=== PATIENT | male | born 1980 | race American Indian/Alaskan Native ===

== ENCOUNTER 2016-07-20 03:10 | Emergency (ER) | payer SELFPAY ==
[2016-07-20 05:25] LABS: Basophils % (Auto) 0.3 % (0.0-1.8); Eosinophils % (Auto) 0.6 % (0.0-4.3); Hematocrit 38.2 % (35.5-45.6); Hemoglobin 13.2 gm/dl (11.8-15.2); Mean Corpuscular HGB Conc 34 % (32-34); Mean Corpuscular Hemoglobin 28 pg (28-32); Mean Corpuscular Volume 81 fl (84-94); Platelet Count 186 K/mm3 (140-440); Red Blood Count 4.75 M/mm3 (3.65-5.03); Red Cell Distribution Width 13.3 % (13.2-15.2); White Blood Count 6.9 K/mm3 (4.5-11.0)
[2016-07-20 05:34] LABS: Alanine Aminotransferase 34 units/L (7-56); Albumin 3.8 g/dL (3.9-5); Albumin/Globulin Ratio 1.7 %; Alkaline Phosphatase 50 units/L (35-129); Anion Gap 16 mmol/L; Blood Urea Nitrogen 13 mg/dL (9-20); Carbon Dioxide 25 mmol/L (22-30); Chloride 96.9 mmol/L (98-107); Glucose 221 mg/dL (75-100); Potassium 3.5 mmol/L (3.6-5.0); Sodium 134 mmol/L (137-145); Total Protein 6.1 g/dL (6.3-8.2)
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
[2016-07-20] MEDS: TENIVAC IM ONE (07:32)
[2016-07-20] MEDS: ANCEF/NS 1 GM/50 ML 1 GM/50 ML BAG IV ONE (07:35)
[2016-07-20 10:04] VITALS: BP 123/74
== END 2016-07-20 10:02 | disposition other institution (70) ==
LOC: ED 03:10
DX: T25.222A Burn of second degree of left foot, initial encounter (principal); E11.9 Type 2 diabetes mellitus without complications; L03.116 Cellulitis of left lower limb; Z87.891 Personal history of nicotine dependence; X08.8XXA Exposure to other specified smoke, fire and flames, initial encounter; Y93.89 Activity, other specified; Y92.89 Other specified places as the place of occurrence of the external cause; Y99.8 Other external cause status
CPT/HCPCS: 36415; 80053; 82140; 85025; 90471; 90714; 96365; 96375; 99285; J0690; J1815

== ENCOUNTER 2020-05-05 22:18 | Emergency (ER) | payer SELFPAY ==
[2020-05-05] MEDS ORDERED: MORPHINE 4 MG/1 ML INJ IV ONE (22:27)
[2020-05-05] MEDS ORDERED: ONDANSETRON 4 MG/2 ML INJ IV ONE (22:27)
[2020-05-05] MEDS ORDERED: FAMOTIDINE 20 MG/2 ML INJ IV ONE (22:27)
[2020-05-05] MEDS ORDERED: SODIUM CHLORIDE 0.9% 1000 ML 1,000 ML IV ONE ×2 (22:27→23:26)
--- NOTE | 2020-05-05 22:55 | Event Note ---
ED Screening Note Date of service: 05/05/20 Time: 22:40 ED Screening Note: Patient is a 39-year-old -[place] male with a history of [id number] diabetes who presents to the ED with complaint of acute onset persistent severe diffuse abdominal pain worse in the epigastric area with intractable nausea and vomiting for the last 2 days. Patient states that he has not been able to keep anything down in the last 12 hours despite trying to drink water. Patient states that the emesis is dark and black in color. Patient states that no one else at home is had similar symptoms. Patient denies hematemesis, chest pain, shortness of breath, fever, chills, cough, diarrhea, dysuria, urinary frequency and urgency, testicular pain, traumatic injury, change in vision, sore throat or headache, dizziness or lightheadedness. This initial assessment/diagnostic orders/clinical plan/treatment(s) is/are subject to change based on patients health status, clinical progression and re- assessment by fellow clinical providers in the ED. Further treatment and workup at subsequent clinical providers discretion. Patient/guardian urged not to elope from the ED as their condition may be serious if not clinically assessed and managed. Initial orders include: CBC, CMP, lipase, UA, abdomen pelvis CT scan with contrast, normal saline 1 L IV bolus, Zofran, Pepcid, morphine
[2020-05-05 22:56] LABS: Basophils # (Auto) 0.1 K/mm3 (0.0-0.1); Basophils % (Auto) 0.7 % (0.0-1.8); Eosinophils % (Auto) 0.1 % (0.0-4.3); Hematocrit 37.1 % (35.5-45.6); Hemoglobin 13.1 gm/dl (11.8-15.2); Lymphocytes # (Auto) 0.9 K/mm3 (1.2-5.4); Lymphocytes % (Auto) 10.9 % (13.4-35.0); Mean Corpuscular HGB Conc 35 % (32-34); Mean Corpuscular Volume 78 fl (84-94); Monocytes # (Auto) 0.7 K/mm3 (0.0-0.8); Monocytes % (Auto) 8.4 % (0.0-7.3); Platelet Count 372 K/mm3 (140-440); Red Blood Count 4.76 M/mm3 (3.65-5.03); Red Cell Distribution Width 13.9 % (13.2-15.2)
[2020-05-05 23:22] LABS: Alanine Aminotransferase 10 units/L (7-56); Albumin 4.1 g/dL (3.9-5); BUN/Creatinine Ratio 26; Blood Urea Nitrogen 21 mg/dL (9-20); Calcium 9.4 mg/dL (8.4-10.2); Hemolysis Index 48
--- NOTE | 2020-05-05 23:30 | Emergency Department Report ---
ED Abdominal Pain HPI - General Chief Complaint: Abdominal Pain Stated Complaint: STOMACH PAIN Time Seen by Provider: 05/05/20 23:21 Source: family Mode of arrival: Ambulatory Limitations: No Limitations - History of Present Illness Initial Comments: Patient is 39 years old male with history of type 2 diabetes on Metformin. Patient presented to the ER complaining of epigastric abdominal pain associated with nausea and vomiting for the last 2 days. Patient stated that he is unable to keep anything down. Patient is actively vomiting in the emergency room. Patient stated that he ate Beninese food 1 night prior to his symptoms starting. Patient denied any fever or chills. No chest pain or shortness of breath. MD Complaint: abdominal pain -: Last night Location: epigastric Radiation: none Migration to: no migration Severity scale (0 -10): 9 Quality: sharp - Related Data Previous Rx's Medication Instructions Recorded Last Taken Type Gentamicin 0.3% Ophth Soln 2 drops OP Q4H #1 bottle 02/18/16 Unknown Rx Allergies Allergy/AdvReac Type Severity Reaction Status Date / Time No Known Allergies Allergy Verified 02/18/16 14:56 ED Review of Systems ROS: Stated complaint: STOMACH PAIN Other details as noted in HPI Comment: All other systems reviewed and negative Constitutional: denies: chills, fever Respiratory: denies: cough, shortness of breath, SOB with exertion, SOB at rest, wheezing Cardiovascular: denies: chest pain, palpitations Gastrointestinal: abdominal pain, nausea, vomiting, diarrhea. denies: const ipation, hematemesis, melena, hematochezia Musculoskeletal: denies: back pain Neurological: denies: headache, weakness, numbness, paresthesias, confusion ED Past Medical Hx - Past Medical History Hx Diabetes: Yes - Surgical History Additional Surgical History: Gus in LLE - Social History Smoking Status: Never Smoker Substance Use Type: None - Medications Home Medications: Home Medications Medication Instructions Recorded Confirmed Last Taken Type Gentamicin 0.3% Ophth Soln 2 drops OP Q4H #1 bottle 02/18/16 Unknown Rx ED Physical Exam - General Limitations: No Limitations General appearance: alert, other (Patient is actively vomiting in the emergency room.) - Head Head exam: Present: atraumatic, normocephalic, normal inspection - ENT ENT exam: Present: mucous membranes dry - Neck Neck exam: Present: normal inspection, full ROM. Absent: tenderness, meningismus, lymphadenopathy, thyromegaly - Respiratory Respiratory exam: Present: normal lung sounds bilaterally - Cardiovascular Cardiovascular Exam: Present: tachycardia - GI/Abdominal GI/Abdominal exam: Present: soft, normal bowel sounds. Absent: distended, tenderness, guarding, rebound, rigid, organomegaly, mass, bruit, pulsatile mass, hernia - Extremities Exam Extremities exam: Present: normal inspection, full ROM, normal capillary refill. Absent: tenderness, pedal edema, joint swelling, calf tenderness - Back Exam Back exam: Present: normal inspection, full ROM. Absent: CVA tenderness (R), CVA tenderness (L) - Neurological Exam Neurological exam: Present: alert, oriented X3, CN II-XII intact - Psychiatric Psychiatric exam: Present: normal mood - Skin Skin exam: Present: warm, intact, normal color ED Course Vital Signs 05/05/20 05/05/20 05/06/20 22:33 23:50 01:30 Temperature 98.1 F Pulse Rate 104 H 100 H 91 H Respiratory 18 16 15 Rate Blood Pressure 112/64 Blood Pressure 149/100 139/83 [Left] O2 Sat by Pulse 99 100 97 Oximetry 05/06/20 03:14 Temperature Pulse Rate 95 H Respiratory 14 Rate Blood Pressure Blood Pressure 132/86 [Left] O2 Sat by Pulse 97 Oximetry ED Medical Decision Making - Lab Data Result diagrams: 05/05/20 22:43 05/05/20 22:43 - Radiology Data Radiology results: report reviewed - Medical Decision Making Patient is 39 years old male with history of type 2 diabetes on Metformin. Patient presented to the ER complaining of epigastric abdominal pain associated with nausea and vomiting for the last 2 days. Patient stated that he is unable to keep anything down. Patient is actively vomiting in the emergency room. Patient stated that he ate Beninese food 1 night prior to his symptoms starting. Patient denied any fever or chills. No chest pain or shortness of breath. Patient received normal saline, Zofran and Reglan. Patient stated that he is f eeling much better. Blood glucose improved. CT abdomen and pelvis is negative for acute finding. I believe patient symptom is most likely related to a gastroenteritis leading to dehydration. Patient given prescription for Zofran and advised to follow-up with his primary doctor in the next 2 to 3 days and to return to the ER if he develop any new symptoms. Critical care attestation.: If time is entered above; I have spent that time in minutes in the direct care of this critically ill patient, excluding procedure time. ED Disposition Clinical Impression: Acute abdominal pain, Acute nausea with nonbilious vomiting Disposition: - TO HOME OR SELFCARE Is pt being admited?: No Condition: Stable Instructions: Nausea, Adult, Abdominal Pain, Adult Referrals: PRIMARY CARE,MD [Primary Care Provider] - 3-5 Days
[2020-05-05] MEDS ORDERED: INSULIN REGULAR, HUMAN 100 UNITS/1 ML IV ONE (23:37)
--- NOTE | 2020-05-06 00:04 | Cat Scan Report ---
CT ABDOMEN AND PELVIS WITH CONTRAST INDICATION / CLINICAL INFORMATION: Patient complains of abdominal pain with nausea and vomiting since Tuesday morning. TECHNIQUE: Axial CT images were obtained through the abdomen and pelvis after IV contrast. All CT sc ans at this location are performed using CT dose reduction for ALARA by means of automated exposure c ontrol. COMPARISON: None available. FINDINGS: LOWER CHEST: No significant abnormality LIVER: Hypoattenuation along the falciform ligament most likely reflects focal fatty infiltration. GALLBLADDER/BILIARY TREE: No significant abnormality PANCREAS: No significant abnormality SPLEEN: No significant abnormality ADRENALS: No significant abnormality KIDNEYS / URETER: No significant abnormality URINARY BLADDER: No significant abnormality REPRODUCTIVE ORGANS: No significant abnormality STOMACH / SMALL BOWEL: Stomach and small bowel are normal in caliber. No evidence of bowel inflammati on. COLON: The colon is unremarkable. The appendix is normal in caliber. LYMPH NODES: No significant adenopathy. VASCULATURE: No significant abnormality. OTHER: No free air, free fluid, or focal fluid collection is identified. SKELETAL SYSTEM: No acute osseous findings. IMPRESSION: No acute abnormality of the abdomen or pelvis. Signer Name: Washington Roca MD Signed: 05/05/2020 11:59 PM Workstation Name: [id number]
[2020-05-06] MEDS ORDERED: METOCLOPRAMIDE 10 MG/2 ML INJ ONE (02:00)
[2020-05-06] MEDS ORDERED: METOCLOPRAMIDE 10 MG/2 ML INJ IV ONE (02:01)
[2020-05-06 02:49] LABS: Bilirubin,Urine NEG (Negative); Blood,Urine SM (Negative); Color,Urine Straw (Yellow); Mucus,Urine FEW /HPF; Protein,Urine <15 mg/dL mg/dL (Negative); Urobilinogen,Urine < 2.0 mg/dL (<2.0)
[2020-05-06 03:15] VITALS: BP 132/86
== END 2020-05-06 04:17 | disposition home or self-care (01) ==
LOC: ED 22:18
DX: R10.13 Epigastric pain (principal); R11.2 Nausea with vomiting, unspecified; E11.9 Type 2 diabetes mellitus without complications; Z79.899 Other long term (current) drug therapy
CPT/HCPCS: 36415; 74177; 80053; 81001; 82962; 83690; 85025; 87086; 96361; 96374; 96375; 99284; J2270; J2405; J2765; J7030; Q9967; J1815